=== PATIENT | male | born 1960 | race African-American/Black ===

== ENCOUNTER 2018-04-30 07:51 | Day surgery (SDC) | payer BC ==
[~2018-04-30 07:51] MED LIST: CEFAZOLIN 2 GM/50 ML (PMX) 50 ML IVPB
[2018-04-30] MEDS: SOD CHLORIDE 0.9% 1,000 ML IV (08:50)
[2018-04-30] MEDS ORDERED: PROPOFOL 20 ML (10:15)
[2018-04-30] MEDS ORDERED: ROCURONIUM 50 MG INJ (10:15)
[2018-04-30] MEDS ORDERED: LIDOCAINE 2% (SDV) 5 ML INJ (10:15)
[2018-04-30] MEDS ORDERED: SUCCINYLCHOLINE CHLORIDE 100 MG/5 ML SYG IV ×2 (10:15→11:24)
[2018-04-30] MEDS ORDERED: ROPIVACAINE 0.5 % 30 ML VIAL (10:15)
[2018-04-30] MEDS ORDERED: MIDAZOLAM 1 MG/ML 2 ML INJ (10:15)
[2018-04-30] MEDS ORDERED: SUGAMMADEX SODIUM 200 MG/2 ML VIAL IV (10:25)
[2018-04-30] MEDS ORDERED: ONDANSETRON 4 MG INJ (11:12)
[2018-04-30] MEDS ORDERED: CEFAZOLIN 1 GM INJ (11:12)
[2018-04-30] MEDS ORDERED: LABETALOL HCL 20MG INJ IV (11:30)
[2018-04-30] MEDS ORDERED: ONDANSETRON 4 MG INJ IV (11:30)
[2018-04-30] MEDS ORDERED: HYDROmorphONE 1 MG/5 ML IV SYRINGE IV ×2 (11:30)
[2018-04-30] MEDS: HYDROmorphONE 1 MG/5 ML IV SYRINGE IV ×5 (12:15→13:09)
[2018-04-30] MEDS: hydrALAzine 20 MG INJ IV ×3 (12:19→12:48)
[2018-04-30] MEDS: HYDROCODONE/APAP (5/325) TAB PO (13:47)
== END 2018-04-30 14:05 | disposition home or self-care (01) ==
LOC: SDS 07:51
DX: K80.20 Calculus of gallbladder without cholecystitis without obstruction (principal); I10 Essential (primary) hypertension
CPT/HCPCS: 47562; 71045